=== PATIENT | male | born 1945 | race Caucasian/White ===

== ENCOUNTER → 2017-01-06 | Day surgery (SDC) | payer MEDICARE ==
[~2017-01-06] VITALS: Ht 167.6 cm; Wt 83.9 kg
[~2017-01-06] MED LIST: ACETAMINOPHEN 1000 MG/100 ML VIAL IV ONE; ASPI81TA81 PO; BACITRACIN TOP OINT 15 GM TUBE ONE; CHLORHEXIDINE GLUCONATE 2 % 1 PACK (2 CLOTHS) TOPICAL PRN; DEXAMETHASONE SOD PHOS 4 MG/ML VIAL ONE; DO NOT ADM ANY ANTICOAGULANT DRUGS PRN; GLUC500C5 PO; HYDROmorphone HCL PF 1 MG/ML VIAL IV PRN; INSULIN HUMAN REGULAR 1,000 UNITS/10 ML VIAL SQ PRN; LACTATED RINGER'S 1000 ML INJ 1,000 ML IV ONE; LACTATED RINGER'S 1000 ML INJ 1,000 ML IV SCH; LACTATED RINGER'S 1000 ML IV PRN; LIDOCAINE HCL 2% 50 ML VIAL ONE; LOSA50TA PO; METOPROLOL TARTRATE 25 MG TAB PO PRN; MIDAZOLAM HCL 2 MG/2 ML VIAL ONE; MULTTAB67 PO; ONDANSETRON HCL 4 MG/2 ML VIAL IV PRN; ONDANSETRON HCL 4 MG/2 ML VIAL IV PUSH ONE; PHENYLEPH/NS 1000 MCG/10 ML SYR IV ONE; POVIDONE IODINE 5% (ANTISEPSIS KIT) 4 APPLICATIONS EACH NARE PRN; PROPOFOL 200 MG/20 ML AMP IV ONE; SODIUM CHLORID 0.9% 500 ML IV PRN; TEST1INJ3 IM; UMEC1AER INH; ceFAZolin 2 GM PREMIX 50 ML IV SCH; ceFAZolin INJ 1,000 MG VIAL IV ONE; ePHEDrine/NS 25 MG/5 ML SYR IV ONE; fentaNYL CITRATE 250 MCG/5 ML AMP ONE
[2017-01-06 06:24] VITALS: BP 144/85; PULSE 63; RESP 18; TEMP 98; O2SAT 95
--- NOTE | 2017-01-06 13:08 | RADRPT ---
EXAM DATE/TIME: 01/06/2017 08:23 [place] COMPARISON: No previous studies available for comparison. INDICATIONS : Fusion and screw placement right wrist. MEDICAL HISTORY : None. SURGICAL HISTORY : None. ENCOUNTER: Initial ACUITY: 1 day PAIN SCORE: Non-responsive. LOCATION: Right Wrist. FINDINGS: 11 digital images are submitted for interpretation. These reveal scaphoid resection and fusion of the proximal to distal carpal rows with lag screws extending from lunate to capitate and triquetrum to h amate. The hardware appears intact and well-positioned. CONCLUSION: Satisfactory operative appearance Nehemiah Lanza MD on January 06, 2017 at 13:00 Board Certified Radiologist. This report was verified electronically.
[2017-01-06 14:19] VITALS: BP 147/81; PULSE 84; RESP 24; TEMP 97.4; O2SAT 94
--- NOTE | 2017-01-09 14:43 | MP ---
cc: AMIE HAN DATE OF SURGERY: 01/06/2017 PREOPERATIVE DIAGNOSIS Right wrist posttraumatic arthritis. POSTOPERATIVE DIAGNOSIS Right wrist posttraumatic arthritis. PROCEDURE 1. Scaphoid excision, four-corner fusion, right wrist. 2. Posterior interosseous nerve neurectomy, right wrist. SURGEON Dr. Amie Han ANESTHESIA General and local. TOURNIQUET TIME Two hours at 250 mmHg. IMPLANTS One [employer] 3.5 x 26 mm compression screw. One [employer] 2.5 x 22 mm compression screw. DBX bone putty. INDICATION FOR PROCEDURE Jonathan Lomeli is a pleasant 71-year-old right-hand dominant male who has had chronic right wrist pain. He was initially seen and MRI showed likely old fracture of the scaphoid with significant arthritis between the scaphoid and the radius, preservation of the cartilage between the lunate and radius, some arthritis of the capitate. The patient tried conservative measures including splinting and corticosteroid injection with short-term improvement in his symptoms. He then requested surgical intervention. The risks were explained but not limited to wound complications, infection, persistent pain, paresthesias, nonunion, malunion, need for a full fusion, and he elected to proceed. DESCRIPTION OF PROCEDURE The patient was identified in the preoperative holding area and the correct extremity was marked. The patient was taken back to the operating room where anesthesia was induced. The right upper extremity was prepped and draped in normal sterile fashion. The tourniquet was inflated to 250 mmHg for two hours. Using fluoroscopy the scaphoid was identified. A longitudinal incision was made over the dorsum of the wrist. The extensor retinaculum was identified and Z-lengthened. Care was taken to protect the extensor tendons of the first, second, third, fourth, fifth and sixth compartments. The capsule was identified and a radial based flap was made. Upon entering the wrist joint there was noted to be significant destruction of the scaphoid. The scaphoid was removed in its entirety using a combination of osteotomes and rongeurs, and this was confirmed under fluoroscopy. The articular surface remained intact over the lunate and radius, thus the decision was made to perform a scaphoid excision, four-corner fusion. The patient preferred this option and understands he may require conversion to a full fusion at some point. A posterior interosseous neurectomy was performed. Then the cartilage over the capitate and distal aspect of the lunate as well as the triquetrum and hamate was removed using a combination of osteotome and curets. Then using K-wires as joysticks the lunate was reduced under the capitate and the triquetrum over the hamate. Then a guidewire for a [employer] Reduct compression screw was placed across the remaining capitate and confirmed under fluoroscopy in both AP and lateral planes. Then a drill was used for the 3.5 mm screw and was measured to 26 mm. This was then placed which provided excellent alignment and compression of the interval between the lunate and capitate. Next, a guidewire was placed across the interval between the triquetrum and hamate. DBX bone putty was placed in the interval. A 2.5 x 22 mm compression screw was placed across the articulation of the triquetrum and hamate and again confirmed under fluoroscopy to be in good position on AP and lateral x-rays. The K-wires were removed. The wound was irrigated. The wrist had stable range of motion with radial and ulnar deviation as well as flexion and extension. The capsule was closed with PDS. The extensor retinaculum was repaired with PDS with the extensor pollicis longus placed outside of the retinaculum. The tourniquet was released. Hemostasis was obtained. The skin was closed with Monocryl and nylon. The patient did have very thin skin. Approximately 10 cc of 2% lidocaine with no epinephrine was used for local anesthesia. The patient was placed into a volar wrist splint which the MP was left free for range of motion. The patient was educated to be non-weightbearing, elevate the hand over the weekend. I will see him in 2 weeks for wound check and then he will likely begin gentle range of motion approximately 4 weeks. He understands again he is at risk for nonunion, malunion, need for a full fusion, persistent pain and the importance of being compliant for approximately 2-3 months postoperatively. MD MATHEW Iniguez/JONES /9:22 PM /2:16 PM [facility]
== END | disposition home or self-care (01) ==
LOC: HSDC 05:36
PROVIDERS: ATTEND Orthopaedic Surgery
DX: M19.031 Primary osteoarthritis, right wrist (principal)
CPT/HCPCS: 01830; 25820; 73110; 76000; C1713; J0131; J0690; J1100; J2250; J2370; J2405; J3010; J7120